=== PATIENT | female | born 1935 | race Caucasian/White ===

== ENCOUNTER → 2016-05-07 | Outpatient (CLI) | payer BC ==
--- NOTE | 2016-05-07 13:58 | MAMMOGRAPHY REPORT ---
BILATERAL DIGITAL SCREENING MAMMOGRAM WITH CAD: 05/07/2016 TECHNIQUE: Current study was also evaluated with a Computer Aided Detection (CAD) system. Bilatera l CC and MLO views were obtained. COMPARISON: Comparison is made to exams dated: 04/25/2015 mammogram, 04/23/2013 mammogram, 04/24/2014 mammogram - [facility], 02/22/2012 mammogram, 02/15/2011 mammogram, and 02/10/2010 mammogram. BREAST COMPOSITION: There are scattered areas of fibroglandular density in both breasts. FINDINGS: No suspicious masses, calcifications, or areas of architectural distortion are noted in e ither breast. There has been no significant interval change compared to prior exams. Bilateral dago gn vascular calcifications are again noted. IMPRESSION: ACR BI-RADS CATEGORY 2: BENIGN There is no mammographic evidence of malignancy. A 1 year screening mammogram is recommended. The p atient will receive written notification of the results. Approximately 10% of breast cancers are not detected with mammography. A negative mammographic repor t should not delay biopsy if a clinically suggestive mass is present. Rain Amos M.D. /:05/07/2016 13:44:29 Reversal Print Inspector: Martine GAN(Esme)(M), [facility] letter sent: Normal 1/2 BI-RADS Code: ACR BI-RADS Category 2: Benign
== END | disposition home or self-care (01) ==
LOC: C.MAMM 10:51
PROVIDERS: ATTEND Internal Medicine
DX: Z12.31 Encounter for screening mammogram for malignant neoplasm of breast (principal)

== ENCOUNTER → 2016-05-28 | Outpatient (CLI) | payer BC ==
--- NOTE | 2016-05-28 08:16 | DIAGNOSTIC IMAGING REPORT ---
ULTRASOUND OF THE PELVIS CLINICAL HISTORY: Postmenopausal bleeding. COMPARISON STUDY: No priors. TECHNIQUE: Real-time, grayscale, and color flow sonography of the pelvis is performed both transabdominally and endovaginally. Images are reviewed in the transverse and longitudinal planes. FINDINGS: Uterus: The uterus is atrophic and heterogeneous in echotexture, measuring 6.7 x 2.2 x 2.2 cm. Endometrium: The endometrium is heterogeneous and thickened for age, measuring up to 0.8 cm. Ovaries: The right ovary was not visualized. The left ovary appears atrophic, and measures 1.5 x 0.7 x 1.0 cm. Normal Doppler waveforms are shown within the left ovary. Pelvis: There is no free fluid in the cul-de-sac. No concerning adnexal lesion is seen. IMPRESSION: 1. The endometrial stripe is heterogeneous and thickened for age measuring up to 8 mm. Although this may simply represent endometrial hyperplasia, follow-up in gynecology with endometrial biopsy is recommended to exclude neoplasm. 2. The left ovary is normal as visualized. The right ovary was not seen. Electronically signed by: Joshua Reyna M.D. 05/28/2016 8:15 AM Dictated Date/Time: 05/28/2016 8:13 AM
== END | disposition home or self-care (01) ==
LOC: C.ULTRBC 07:41
PROVIDERS: ATTEND Nurse Practitioner Family
DX: N95.0 Postmenopausal bleeding (principal)

== ENCOUNTER → 2016-06-14 | Outpatient (CLI) | payer BC | END | disposition home or self-care (01) | LOC: C.PATHSPEC 13:51 | PROVIDERS: ATTEND Obstetrics & Gynecology | DX: N95.0 Postmenopausal bleeding (principal) ==

== ENCOUNTER → 2017-05-09 | Outpatient (CLI) | payer BC ==
--- NOTE | 2017-05-10 07:57 | MAMMOGRAPHY REPORT ---
BILATERAL DIGITAL SCREENING MAMMOGRAM TOMOSYNTHESIS WITH CAD: 05/09/2017 CLINICAL HISTORY: Routine screening. Patient has no complaints. TECHNIQUE: Breast tomosynthesis in addition to standard 2D mammography was performed. Current study was also evaluated with a Computer Aided Detection (CAD) system. COMPARISON: Comparison is made to exams dated: 05/07/2016 mammogram, 04/25/2015 mammogram, 04/24/2014 m ammogram, 04/23/2013 mammogram - [facility], 02/22/2012 mammogram, and 02/15/2011 [facility] mogram. BREAST COMPOSITION: There are scattered areas of fibroglandular density in both breasts. FINDINGS: There are moderate to marked vascular calcifications in the breasts. No suspicious mass, a rchitectural distortion or cluster of microcalcifications is seen. IMPRESSION: ACR BI-RADS CATEGORY 1: NEGATIVE There is no mammographic evidence of malignancy. A 1 year screening mammogram is recommended. The pa tient will receive written notification of the results. Approximately 10% of breast cancers are not detected with mammography. A negative mammographic report should not delay biopsy if a clinically suggestive mass is present. Elena Nixon M.D. ay/:05/09/2017 18:04:58 Corn Grower: Joselin GAN(Esme)(M), [facility] letter sent: Normal 1/2 BI-RADS Code: ACR BI-RADS Category 1: Negative
== END | disposition home or self-care (01) ==
LOC: C.MAMM 11:03
PROVIDERS: ATTEND Internal Medicine
DX: Z12.31 Encounter for screening mammogram for malignant neoplasm of breast (principal)

== ENCOUNTER 2023-08-18 14:53 | Observation (INO) ==
[2023-08-18 15:42] LABS: Basophils # (auto) 0.03 K/uL (0.00-0.20); Basophils % (auto) 0.3 %; Eosinophils # (auto) 0.13 K/uL (0.00-0.50); Eosinophils % (auto) 1.5 %; Hematocrit (blood only) 40.3 % (37.0-47.0); Hemoglobin 12.6 g/dl (12.0-16.0); Immature Granulocytes # (auto) 0.03 K/uL (0.01-0.20); Immature Granulocytes % (auto) 0.3 %; Lymphocytes # (auto) 1.24 K/uL (1.20-3.40); Lymphocytes % (auto) 13.9 %; Mean Corpuscular Hgb Conc 31.3 g/dL (32.0-36.0); Mean Corpuscular Volume 99.3 fL (80.0-100.0); Monocytes # (auto) 0.82 K/uL (0.11-0.59); Monocytes % (auto) 9.2 %; Neutrophils # (auto) 6.68 K/uL (1.40-6.50); Neutrophils % (auto) 74.8 %; Platelet Count 309 K/uL (130-400); RDW Coefficient of Variation 12.3 % (11.5-14.5); RDW Standard Deviation 45.2 fL (36.4-46.3); Red Blood Count 4.06 M/uL (4.20-5.40); White Blood Count 8.93 K/ul (4.8-10.8)
[2023-08-18 16:07] LABS: Albumin Globulin Ratio 1.1 (0.9-2); Bilirubin,Total 0.5 mg/dl (0.2-1.0); Calcium 9.7 mg/dl (8.6-10.3); Creatinine Clr Calc Pharmacy 62.1 ml/min; Est GFR (African American) 100.2 ml/min; Est GFR (Non-African American) 86.4 ml/min; Globulin 3.6 gm/dl (2.5-4.0); Magnesium 2.2 mg/dl (1.7-2.4); Partial Thromboplastin Time 28 Seconds (21-31); Potassium 4.4 mmol/L (3.5-5.1); Prothrombin Time 10.6 Seconds (9.0-12.0); Total Protein 7.6 gm/dl (6.0-8.3)
--- NOTE | 2023-08-18 16:09 | XRay Report ---
SINGLE VIEW CHEST CLINICAL HISTORY: Sepsis. FINDINGS: A PA chest radiograph is compared to study dated 06/07/2018. The heart is top normal for pro jection noting atherosclerotic calcification of the thoracic aorta. There is bibasilar scarring/atele ctasis. No airspace consolidation or large pleural effusion is identified. No pneumothorax is seen. T he skeletal structures are osteopenic. The bony thorax is grossly intact. IMPRESSION: No active disease in the chest. ACT 112: Negative or not required by law. Electronically signed by: Joshua Reyna M.D. 08/18/2023 4:08 PM
[2023-08-18 16:13] LABS: Troponin I High Sensitivity 12.3 pg/ml (0-14)
[2023-08-18] MEDS: AMPICILLIN/SULBACTAM SOD 3,000 MG in SODIUM CHLOR 0.9% MINI-B 100 ML IV STA (16:41)
--- NOTE | 2023-08-18 16:42 | XRay Report ---
RIGHT FOREARM 2 VIEWS CLINICAL HISTORY: Right arm swelling. FINDINGS: AP and lateral views of the right forearm are obtained. No prior studies are available for comparison at the time of dictation. The skeletal structures are osteopenic. There is no radiographic evidence of right forearm fracture. The elbow and wrist joints are grossly maintained. Diffuse soft tissue edema is seen throughout the right forearm, wrist, and hand. No radiodense foreign body or sof t tissue gas is identified. IMPRESSION: Soft tissue edema with no acute bony abnormality identified. Electronically signed by: Joshua Reyna M.D. 08/18/2023 4:41 PM
--- NOTE | 2023-08-18 16:47 | Emergency Department Note ---
History of Present Illness General Chief complaint: Hand Injury/Pain Stated complaint: CELLULITIS OF RT HAND Time Seen by Provider: 08/18/23 15:21 History of Present Illness NAME: KURT TODD AGE: 88 SEX: F : 1935 ARRIVES VIA: Walk-In INFORMANT: Patient ED PROVIDER(S): LONA Brower, Rafael Galan MD The patient is a pleasant well-appearing 88-year-old female who arrives to the emergency department with her aide for evaluation of pain in the right hand. She reports she was scratched by a cat a few days ago and was seen by her provider. She states she has been Augmentin since then, which has not helped with the infection. She also received IM Rocephin. She has significant edema with erythema extending from the MCP joints of the right hand to the mid forearm. She reports pain with flexion and extension of the wrist, and limited range of motion due to edema. She denies fever, or loss of roller skates assembler strength. She is alert and oriented at baseline. Home Medications Medication Instructions Recorded Confirmed Type aspirin 81 mg tablet,delayed 81 mg PO QAM 11/27/20 08/18/23 History release atorvastatin 40 mg tablet 40 mg PO QPM 11/27/20 08/18/23 History Saccharomyces boulardii 250 mg 250 mg PO DAILY 08/18/23 08/18/23 History capsule (Florastor) acetaminophen 500 mg tablet 1,000 mg PO TID 08/18/23 08/18/23 History (Tylenol Extra Strength) amoxicillin 875 mg-potassium 1 tab PO BID 08/18/23 08/18/23 History clavulanate 125 mg tablet cholecalciferol (vitamin D3) 50 50 mcg PO QAM 08/18/23 08/18/23 History mcg (2,000 unit) capsule (Vitamin D3) cyanocobalamin (vitamin B-12) 500 500 mcg PO DAILY 08/18/23 08/18/23 History mcg tablet (Vitamin B-12) diclofenac sodium 1 % topical gel 1 ea topical TID PRN right knee 08/18/23 08/18/23 History pain diphenhydramine-zinc acetate 1 1 applic topical Q6 PRN 08/18/23 08/18/23 History %-0.1 % topical cream (Benadryl itching/rash Itch Stopping) eplerenone 25 mg tablet 12.5 mg PO QAM 08/18/23 08/18/23 History levothyroxine 75 mcg tablet 75 mcg PO DAILYBB 08/18/23 08/18/23 History oxycodone 5 mg tablet 5 mg PO QID PRN Pain 08/18/23 08/18/23 History vit C 250 mg-vit E 90 mg-zinc 40 2 tab PO QPM 08/18/23 08/18/23 History mg-copper 1 [id number] capsule (PreserVision AREDS-2) Allergies Allergy/AdvReac Type Severity Reaction Status Date / Time No Known Drug Allergies Allergy Unknown Verified 08/18/23 17:42 Past Med/Surg History Problem List (Updated 08/18/23 @ 19:22 by LONA Willis) Cellulitis (Acute) Cat scratch (Acute) Patella fracture 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, multifocal, multiple vascular territories Small vessel disease, cerebrovascular Memory changes Thickened endometrium Medical History Thyroid disease hypothyroid Surgical History History of D&C History of appendectomy History of oral surgery Tooth extraction Family History Grandmother Breast cancer Father Prostate cancer Mother Osteoporosis Denies family history of Pancreatic cancer Ovarian cancer Colorectal cancer Uterine cancer Social History Smoking Status: Never smoker Do You Dip or Chew Tobacco: No; Hx Alcohol Use: Yes Preferred Language: Czech marital status: / Current Living Situation: Alone Current Living Situation Comment: [facility] current occupational status: retired current occupation: prior high school math tutor. How many Children do You have: 6 Feels Safe at Home: Yes Diet: regular Diet Comment: regular diet Physical Activity Frequency: 3-4 Times per Week Physical Exam Vital Signs Vital Signs - 24 hr 08/18/23 15:16 08/18/23 16:44 08/18/23 16:44 Temperature 36.8 C Temperature Source Oral Pulse Rate 86 Pulse Rate [Finger] 75 Respiratory Rate 16 15 Respiratory Effort / Characteristics Non-Labored Spontaneous Respiratory Depth Normal Blood Pressure 134/76 Blood Pressure [Right Arm] 138/77 Blood Pressure Mean 95 Blood Pressure Mean [Right Arm] 97 Pulse Oximetry 95 99 99 Oxygen Delivery Method Room Air Sepsis Recent Fever Within 48 Hours No Sepsis New/Unexplained Change in Mental Status No Sepsis Action Taken by Nursing No Action Required 08/18/23 18:40 Temperature Temperature Source Pulse Rate Pulse Rate [Finger] Respiratory Rate Respiratory Effort / Characteristics Respiratory Depth Blood Pressure Blood Pressure [Right Arm] 135/70 Blood Pressure Mean Blood Pressure Mean [Right Arm] 91 Pulse Oximetry Oxygen Delivery Method Sepsis Recent Fever Within 48 Hours Sepsis New/Unexplained Change in Mental Status Sepsis Action Taken by Nursing VITALS: Vitals are noted on the nurse's note and reviewed by myself. Vital signs stable. GENERAL: 88-year-old female, in no acute distress, nondiaphoretic, well- developed well-nourished. SKIN: The skin was without rashes, erythema, edema, or bruising. HEAD: Normocephalic atraumatic. HEART: Regular rate and rhythm without murmurs gallops or rubs. LUNGS: Clear to auscultation bilaterally without wheezes, rales or rhonchi. No retractions or accessory muscle use. MUSCULOSKELETAL: No muscle atrophy, erythema, and edema present from the MCP joints of the right hand, dorsum, extending to the mid forearm. Limited ROM to due edema, strength 5/5, capillary refill <3. NEURO: Patient was alert and oriented to person place and time. No focal neurological deficits. Course Administered Medications Azithromycin 500 mg/ Dextrose 255 mls @ 127.5 mls/hr IV NOW STA Stop: 08/18/23 19:48 Last Admin: 08/18/23 18:07 Dose: 127.5 mls/hr Documented By: SWETA Discontinued Medications Ampicillin Sodium/Sulbactam Sodium 3,000 mg/ Sodium Chloride 100 mls @ 200 mls/hr IV NOW STA Stop: 08/18/23 16:35 Last Infusion: 08/18/23 17:39 Dose: Infused Documented By: Admin: 08/18/23 16:41 Dose: 200 mls/hr Documented By: SWETA Medical Decision Making Differential Diagnosis Cellulitis, abscess, MRSA infection, DVT, necrotizing fasciitis, dermatitis, drug eruption, allergic reaction, as well as other pathologies. Medical Records Attestation: I reviewed the patient's medical records. Home Medications Current Medication List: was personally reviewed by me Laboratory Data Attestation: I reviewed the patient's lab results. No leukocytosis, stable hemoglobin and, no electrolyte abnormalities, troponin 12.3, lactate [], procalcitonin 0.02. 08/18/23 15:20 08/18/23 15:20 Lab Results 08/18/23 08/18/23 Range/Units 15:20 16:35 WBC 8.93 (4.8-10.8) K/ul RBC 4.06 L (4.20-5.40) M/uL Hgb 12.6 (12.0-16.0) g/dl Hct 40.3 (37.0-47.0) % MCV 99.3 (80.0-100.0) fL MCH 31.0 (25.0-34.0) pg MCHC 31.3 L (32.0-36.0) g/dL RDW Std Deviation 45.2 (36.4-46.3) fL RDW Coeff of Neri 12.3 (11.5-14.5) % Plt Count 309 (130-400) K/uL MPV 10.0 (9.4-12.4) fL Immature Gran % (Auto) 0.3 % Neut % (Auto) 74.8 % Lymph % (Auto) 13.9 % [place] % (Auto) 9.2 % Eos % (Auto) 1.5 % Baso % (Auto) 0.3 % Neut # (Auto) 6.68 H (1.40-6.50) K/uL Lymph # (Auto) 1.24 (1.20-3.40) K/uL Churchill # (Auto) 0.82 H (0.11-0.59) K/uL Eos # (Auto) 0.13 (0.00-0.50) K/uL Baso # (Auto) 0.03 (0.00-0.20) K/uL Immature Gran # (Auto) 0.03 (0.01-0.20) K/uL ESR 76 H (0-30) mm/hr PT 10.6 (9.0-12.0) Seconds INR 1.0 (0.9-1.1) APTT 28 (21-31) Seconds PTT Ratio 1.0 Sodium 136 (136-145) mmol/L Potassium 4.4 (3.5-5.1) mmol/L Chloride 102 (98-107) mmol/L Carbon Dioxide 28 (21-32) mmol/L Anion Gap 6 (3-11) BUN 16 (6-23) mg/dl Creatinine 0.50 L (0.6-1.2) mg/dl Est Cr Clr Drug Dosing 62.1 ml/min Est GFR ( Amer) 100.2 ml/min Est GFR (Non-Af Amer) 86.4 ml/min BUN/Creatinine Ratio 32.0 H (10-20) Glucose 102 H (70-99(Fasting)) mg/dl Lactate 1.3 (0.4-2.0) mmol/L Calcium 9.7 (8.6-10.3) mg/dl Magnesium 2.2 (1.7-2.4) mg/dl Total Bilirubin 0.5 (0.2-1.0) mg/dl AST 19 (13-39) U/L ALT 16 (7-52) U/L Alkaline Phosphatase 78 (34-104) U/L Troponin I High Sens 12.3 (0-14) pg/ml C-Reactive Protein 12.48 H (0-0.5) mg/dl Total Protein 7.6 (6.0-8.3) gm/dl Albumin 4.0 (3.4-5.0) gm/dl Globulin 3.6 (2.5-4.0) gm/dl Albumin/Globulin Ratio 1.1 (0.9-2) Procalcitonin < 0.02 (0-0.5) ng/ml Urine Color Yellow Urine Appearance Clear (Clear) Urine pH 5.5 (4.5-7.5) Ur Specific [place] 1.023 (1.000-1.030) Urine Protein 1+ H (Negative) Urine Glucose (UA) Negative (Negative) Urine Ketones Trace H (Negative) Urine Blood Negative (Negative) Urine Nitrite Negative (Negative) Urine Bilirubin Negative (Negative) Urine Urobilinogen Negative (Negative) Ur Leukocyte Esterase Trace H (Negative) Urine WBC (Auto) 6-10 H (0-5) /hpf Urine RBC (Auto) 0-2 (0-2) /hpf U Hyaline Cast (Auto) 0-2 (0-2) /lpf U Epithel Cells (Auto) 0-2 (0-2) /hpf Urine Bacteria (Auto) None Seen (None Seen) Imaging Data Radiologist's Impression: Chest X-Ray 08/18/23 15:18 SINGLE VIEW CHEST CLINICAL HISTORY: Sepsis. FINDINGS: A PA chest radiograph is compared to study dated 06/07/2018. The heart is top normal for projection noting atherosclerotic calcification of the thoracic aorta. There is bibasilar scarring/atelectasis. No airspace consolidation or large pleural effusion is identified. No pneumothorax is seen. The skeletal structures are osteopenic. The bony thorax is grossly intact. IMPRESSION: No active disease in the chest. ACT 112: Negative or not required by law. Electronically signed by: Joshua Reyna M.D. 08/18/2023 4:08 PM Hand X-Ray 08/18/23 16:05 XR hand RT min 3V routine HISTORY: 88 years-old Female edema acute pain and swelling of the right hand COMPARISON: Forearm radiograph same day TECHNIQUE: 3 views of the right hand FINDINGS: Mild diffuse soft tissue swelling. The visualized appearance of the bones. Chondrocalcinosis. Moderate multifocal osteoarthritis. No acute fracture, dislocation or osseous erosion. IMPRESSION: Soft tissue swelling without acute osseous abnormality. ACT 112: Negative or not required by law. The above report was generated using voice recognition software. It may contain grammatical, syntax or spelling errors. Electronically signed by: Iain Poole M.D. 08/18/2023 4:57 PM Forearm X-Ray 08/18/23 16:06 RIGHT FOREARM 2 VIEWS CLINICAL HISTORY: Right arm swelling. FINDINGS: AP and lateral views of the right forearm are obtained. No prior studies are available for comparison at the time of dictation. The skeletal structures are osteopenic. There is no radiographic evidence of right forearm fracture. The elbow and wrist joints are grossly maintained. Diffuse soft tissue edema is seen throughout the right forearm, wrist, and hand. No radiodense foreign body or soft tissue gas is identified. IMPRESSION: Soft tissue edema with no acute bony abnormality identified. Electronically signed by: Joshua Reyna M.D. 08/18/2023 4:41 PM MDM Narrative The patient is a pleasant 88-year-old female who arrives to the emergency department with her aide for the above-stated complaint. Upon examination it appears the patient has failed outpatient oral antibiotic treatment. Her infection is from a cat scratch which is progressed despite Augmentin and IM Rocephin. She denies fevers, however erythema and edema has worsened over the last few days. A saline lock was established, CBC, CMP, lactate, troponin, and procalcitonin were obtained which showed no leukocytosis, stable hemoglobin and hematocrit, no electrolyte abnormalities, troponin negative, procalcitonin 0.02, lactate negative. X-ray imaging of the hand and forearm was obtained which showed no acute fracture or bony abnormality per my initial interpretation. The patient was provided 3 g of IV Unasyn for IV antibiotic treatment, as well as IV azithromycin. Case management was notified regarding the patient's need for admission who contacted the [facility] hospitalist group. Dr. Pastor was notified of the patient, and agreed to accept her for admission for IV antibiotics. Please refer to Dr. Pastor's documentation for further patient care. The patient's case was discussed with Dr. Galan, who agreed with my evaluation and treatment plan. Impression & Plan Cat scratch, Cellulitis Discharge Plan Visit Data Chief Complaint: Hand Injury/Pain Stated Complaint: CELLULITIS OF RT HAND ED Provider: Rafael Galan ED Midlevel Provider: Jolanta Monaco Discharge Problem: Cat scratch, Cellulitis Forms Stand Alone Forms: [facility] Prescriptions Prescriptions: No Action aspirin 81 mg tablet,delayed release (DR/EC) 81 mg PO QAM atorvastatin 40 mg tablet 40 mg PO QPM levothyroxine 75 mcg Tablet 75 mcg PO DAILYBB cholecalciferol (vitamin D3) [Vitamin D3] 50 mcg (2,000 unit) Capsule 50 mcg PO QAM cyanocobalamin (vitamin B-12) [Vitamin B-12] 500 mcg Tablet 500 mcg PO DAILY PreserVision AREDS-2 250-90-40-1 mg Capsule 2 tab PO QPM acetaminophen [Tylenol Extra Strength] 500 mg Tablet 1,000 mg PO TID oxycodone 5 mg Tablet 5 mg PO QID PRN (Reason: Pain) eplerenone 25 mg Tablet 12.5 mg PO QAM Rx Instructions: 1/2 tablet dose diclofenac sodium 1 % Gel 1 ea TOPICAL TID PRN (Reason: right knee pain) Saccharomyces boulardii [Florastor] 250 mg Capsule 250 mg PO DAILY Rx Instructions: take for 2 weeks..start 08/16/23 end date 08/30/23 amoxicillin-pot clavulanate [Augmentin] 875-125 mg Tablet 1 tab PO BID Rx Instructions: take for 14 administrations starting 08/15/23 and ending 08/22/23 Benadryl Itch Stopping 1-0.1 % Cream 1 applic TOPICAL Q6 PRN (Reason: itching/rash) Referrals Referrals: Hoang Palma MD [Primary Care Provider] - Discharge Problem: Cellulitis Qualifiers: Site of cellulitis: extremity Site of cellulitis of extremity: upper extremity Laterality: right Qualified Code(s): L03.113 - Cellulitis of right upper limb
--- NOTE | 2023-08-18 16:58 | XRay Report ---
XR hand RT min 3V routine HISTORY: 88 years-old Female edema acute pain and swelling of the right hand COMPARISON: Forearm radiograph same day TECHNIQUE: 3 views of the right hand FINDINGS: Mild diffuse soft tissue swelling. The visualized appearance of the bones. Chondrocalcinosis. Moderat e multifocal osteoarthritis. No acute fracture, dislocation or osseous erosion. IMPRESSION: Soft tissue swelling without acute osseous abnormality. ACT 112: Negative or not required by law. The above report was generated using voice recognition software. It may contain grammatical, syntax o r spelling errors. Electronically signed by: Iain Poole M.D. 08/18/2023 4:57 PM
[2023-08-18 17:05] LABS: Appearance Urine Clear (Clear); Bacteria Urine Automated None Seen (None Seen); Bilirubin Urine Negative (Negative); Blood Urine Negative (Negative); Cast Urine Automated 0-2 /lpf (0-2); Color Urine Yellow; Epithelial Cell Urine Auto 0-2 /hpf (0-2); Glucose Urine UA Negative (Negative); Ketones Urine Trace (Negative); Leukocyte Esterase Urine Trace (Negative); Nitrite Urine Negative (Negative); Protein Urine 1+ (Negative); RBC Urine Automated 0-2 /hpf (0-2); Specific Gravity Urine 1.023 (1.000-1.030); Urobilinogen Urine Negative (Negative); pH Urine 5.5 (4.5-7.5)
--- NOTE | 2023-08-18 17:31 | History & Physical Report ---
Date of Service August 18, 2023 Assessment & Plan (1) Cat scratch: Plan: [facility] resident; cat scratch on her right hand at some point last week from her home Nursing staff first noticed it on Tuesday, and it has persistently gotten worse Failure of outpatient treatment with Augmentin and IM Rocephin x 1 dose Leukocytosis; afebrile Procalcitonin WNL Right hand/forearm x-rays with soft tissue swelling but no acute bony abnormalities CRP and ESR ordered, pending Azithromycin 500 mg IV q24h; QTc pending Rocephin 2000 mg IV q24h Flagyl 500 mg IV q8h Follow blood cx A.m. CBC, BMP, CRP (2) Chronic arterial ischemic stroke, multifocal, multiple vascular territories: (3) Small vessel disease, cerebrovascular: (4) Memory changes: Plan Disposition: Obs - Admit to [facility] DNR/DNI Regular diet VTE PPx: TEDs History of Present Illness Chief Complaint: Right hand injury/pain, cat scratch Primary Care Provider: Hoang Palma MD Rahel is a pleasant 88-year-old female with PMH of cerebrovascular small vessel disease, valvular heart disease, arterial ischemic stroke, and thickened endometrium. She presented from [facility] on 08/17 for right hand cellulitis secondary to a cat scratch. Patient is unsure when the cat scratched her, but it was her house cat (Magui). [facility] nursing present in the room implies additional history; they report that swelling and erythema began to get worse on Tuesday/Tuesday of this past week, and she has been taking Augmentin for it without improvement. She also received a dose of IM Rocephin on 08/15. The patient has no complaints at this time, but does note that his swollen and erythematous. She denies loss of function in her right hand, difficulty with gripping things, itching, or right hand, wrist, or forearm pain. She denies fevers over the past week. She denies prior injuries to the hand for broken bones. She denies any recent falls or fainting. She denies smoking, alcohol use, or tobacco use. Patient's vitals are stable at time of admission. ED course: Unasyn 3000 mg IV ROS: Patient endorses mild headache, and swelling and erythema on the dorsal aspect of the right hand/wrist/forearm. Patient denies right hand/wrist/forearm pain, itching, fevers, chills, nightsweats, dizziness, lightheadedness, chest pain, SOB, cough, abdominal pain, N/V/D, or numbness or tingling in the right arm. Allergies Allergy/AdvReac Type Severity Reaction Status Date / Time No Known Drug Allergies Allergy Unknown Verified 08/18/23 17:42 Home Medications Medication Instructions Recorded Confirmed Type aspirin 81 mg tablet,delayed 81 mg PO QAM 11/27/20 08/18/23 History release atorvastatin 40 mg tablet 40 mg PO QPM 11/27/20 08/18/23 History Saccharomyces boulardii 250 mg 250 mg PO DAILY 08/18/23 08/18/23 History capsule (Florastor) acetaminophen 500 mg tablet 1,000 mg PO TID 08/18/23 08/18/23 History (Tylenol Extra Strength) amoxicillin 875 mg-potassium 1 tab PO BID 08/18/23 08/18/23 History clavulanate 125 mg tablet cholecalciferol (vitamin D3) 50 50 mcg PO QAM 08/18/23 08/18/23 History mcg (2,000 unit) capsule (Vitamin D3) cyanocobalamin (vitamin B-12) 500 500 mcg PO DAILY 08/18/23 08/18/23 History mcg tablet (Vitamin B-12) diclofenac sodium 1 % topical gel 1 ea topical TID PRN right knee 08/18/23 08/18/23 History pain diphenhydramine-zinc acetate 1 1 applic topical Q6 PRN 08/18/23 08/18/23 History %-0.1 % topical cream (Benadryl itching/rash Itch Stopping) eplerenone 25 mg tablet 12.5 mg PO QAM 08/18/23 08/18/23 History levothyroxine 75 mcg tablet 75 mcg PO DAILYBB 08/18/23 08/18/23 History oxycodone 5 mg tablet 5 mg PO QID PRN Pain 08/18/23 08/18/23 History vit C 250 mg-vit E 90 mg-zinc 40 2 tab PO QPM 08/18/23 08/18/23 History mg-copper 1 [id number] capsule (PreserVision AREDS-2) Past Med/Surg History Problem List (Updated 08/18/23 @ 19:22 by LONA Willis) Cellulitis (Acute) Cat scratch (Acute) Patella fracture 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, multifocal, multiple vascular territories Small vessel disease, cerebrovascular Memory changes Thickened endometrium Medical History Thyroid disease hypothyroid Surgical History History of D&C History of appendectomy History of oral surgery Tooth extraction Family History Grandmother Breast cancer Father Prostate cancer Mother Osteoporosis Denies family history of Pancreatic cancer Ovarian cancer Colorectal cancer Uterine cancer Social History Smoking Status: Never smoker Do You Dip or Chew Tobacco: No; Hx Alcohol Use: Yes Preferred Language: Lao marital status: / Current Living Situation: Alone Current Living Situation Comment: [facility] current occupational status: retired current occupation: prior grade school teacher. How many Children do You have: 6 Feels Safe at Home: Yes Diet: regular Diet Comment: regular diet Physical Activity Frequency: 3-4 Times per Week Review of Systems 2 Review of Systems: See HPI above Physical Exam 2 Physical Exam: General: no acute distress; pleasant affect; non-toxic appearing; well- nourished; cooperative HEENT: normocephalic, atraumatic; no scleral icterus; PERRLA; moist mucus membrane; vision intact; hard of hearing Neck: supple; trachea midline Skin: warm, dry without signs of tenting; no cyanosis; no rashes, bruising, lesions, or erythema noted RUE: Dorsal aspect of right upper extremity is erythematous, swollen, and warm to touch (see photos below) CV: chest wall NTP; RRR; S1/S2 normal; no murmurs/rubs/gallops; pulses intact and symmetric at radial, DP, and PT Lungs: no acute respiratory distress; symmetrical chest wall expansion; clear breath sounds across all lung gerard w/o adventitious sounds; no wheezing ABD: Soft, NTP; BS present; no rebound/guarding; no distention MSK: no tics or fasciculations; no edema noted in the LEs b/l, nonerythematous; 5/5 plaster helper strength bilaterally Neuro: A&Ox3; patient exhibits mild confusion regarding the events of the cat scratch; normal mood and affect; fluent speech; no focal deficits; sensation grossly intact in the UE/LEs b/l Results & Data Results & Data Vital Signs (Past 12 Hours) Vital Signs Temp Pulse Pulse Resp BP BP Pulse Ox 08/18/23 16:44 99 08/18/23 16:44 75 15 138/77 99 08/18/23 15:16 36.8 C 86 16 134/76 95 O2 Del Method 08/18/23 16:44 08/18/23 16:44 08/18/23 15:16 Room Air Laboratory Results Abnormal lab results 08/18/23 08/18/23 Range/Units 15:20 16:35 RBC 4.06 L (4.20-5.40) M/uL MCHC 31.3 L (32.0-36.0) g/dL Neut # (Auto) 6.68 H (1.40-6.50) K/uL Wagoner # (Auto) 0.82 H (0.11-0.59) K/uL Creatinine 0.50 L (0.6-1.2) mg/dl BUN/Creatinine Ratio 32.0 H (10-20) Glucose 102 H (70-99(Fasting)) mg/dl Urine Protein 1+ H (Negative) Urine Ketones Trace H (Negative) Ur Leukocyte Esterase Trace H (Negative) Urine WBC (Auto) 6-10 H (0-5) /hpf Diagnostic Findings Chest X-Ray 08/18/23 15:18 SINGLE VIEW CHEST CLINICAL HISTORY: Sepsis. FINDINGS: A PA chest radiograph is compared to study dated 06/07/2018. The heart is top normal for projection noting atherosclerotic calcification of the thoracic aorta. There is bibasilar scarring/atelectasis. No airspace consolidation or large pleural effusion is identified. No pneumothorax is seen. The skeletal structures are osteopenic. The bony thorax is grossly intact. IMPRESSION: No active disease in the chest. ACT 112: Negative or not required by law. Electronically signed by: Joshua Reyna M.D. 08/18/2023 4:08 PM Hand X-Ray 08/18/23 16:05 XR hand RT min 3V routine HISTORY: 88 years-old Female edema acute pain and swelling of the right hand COMPARISON: Forearm radiograph same day TECHNIQUE: 3 views of the right hand FINDINGS: Mild diffuse soft tissue swelling. The visualized appearance of the bones. Chondrocalcinosis. Moderate multifocal osteoarthritis. No acute fracture, dislocation or osseous erosion. IMPRESSION: Soft tissue swelling without acute osseous abnormality. ACT 112: Negative or not required by law. The above report was generated using voice recognition software. It may contain grammatical, syntax or spelling errors. Electronically signed by: aIin Poole M.D. 08/18/2023 4:57 PM Forearm X-Ray 08/18/23 16:06 RIGHT FOREARM 2 VIEWS CLINICAL HISTORY: Right arm swelling. FINDINGS: AP and lateral views of the right forearm are obtained. No prior studies are available for comparison at the time of dictation. The skeletal structures are osteopenic. There is no radiographic evidence of right forearm fracture. The elbow and wrist joints are grossly maintained. Diffuse soft tissue edema is seen throughout the right forearm, wrist, and hand. No radiodense foreign body or soft tissue gas is identified. IMPRESSION: Soft tissue edema with no acute bony abnormality identified. Electronically signed by: Joshua Reyna M.D. 08/18/2023 4:41 PM ECG Additional Comments: ECG ordered to assess QTc, pending Code Status & VTE Plan Code Status DNR/DNI (confirmed via POLST form signed on 11/23/2021) Supervising Physician Co-Signing Physician Notes Patient seen and examined, chart reviewed, case discussed with Javier Salguero PA-C and I agree with the assessment and plan as above except as otherwise noted Labs and images reviewed Patient presents with worsening cellulitis at site of a cat scratch in her right arm. Expanding demarcated erythema of the right hand and distal arm, marked with surgical pen and photos and H&P. Chest x-ray with soft tissue edema no bony abnormalities. Continued to worsen with progressive erythemic borders despite outpatient treatment with Augmentin. Seen at bedside, nontoxic- appearing. Will treat with Rocephin with Flagyl, and add azithromycin for additional Pasteurella coverage. No leukocytosis. Nontoxic-appearing. Sub Master strength and wrist movement is without induction of radiating pain, low suspicion for tenosynovitis. Agree with assessment and management above. PG Care Time/CCT Total # of Minutes Spent Total Time Spent with Patient: Total time spent is greater than 50% in coordination of care (as documented) at patient's floor/unit and/or counseling patient: C[place] [address] INT INP/OBS CARE 1/40MIN Patient Type Established History Detailed Exam Detailed Medical Decision Making Low Complexity Diagnoses Cat scratch W55.03XA Chronic arterial ischemic stroke, multifocal, multiple vascular territories I69.30 Small vessel disease, cerebrovascular I67.9 Memory changes R41.3
[2023-08-18] MEDS: AZITHROMYCIN 500 MG in DEXTROSE 5% 250 ML IV STA (18:07)
--- NOTE | 2023-08-18 18:46 | Emergency Department Note ---
ED Visit Note The patient was seen and examined with mayra. I agree with the history, physical and findings. Please see the note for disposition and details. .
[2023-08-18 18:57] LABS: C Reactive Protein 12.48 mg/dl (0-0.5)
[2023-08-18] MEDS ORDERED: oxyCODONE HCL IR 5 MG TAB (IMMEDIATE RELEASE) PO PRN (19:58)
[2023-08-18] MEDS ORDERED: DICLOFENAC SOD 1% GEL 100 GM TUBE EXT PRN (19:58)
[2023-08-18] MEDS ORDERED: MELATONIN 3 MG TAB PO PRN (19:58)
[2023-08-18] MEDS: cefTRIAXone SODIUM 2,000 MG/50 ML BAG IV STA (20:41)
[2023-08-18] MEDS: metroNIDAZOLE 500 MG/100 ML BAG IV SCH (21:35)
[2023-08-18] MEDS: ACETAMINOPHEN 500 MG TAB PO SCH (21:36)
[2023-08-18] MEDS: ATORVASTATIN 40 MG TAB PO SCH (21:36)
[2023-08-19] MEDS: LEVOTHYROXINE SODIUM 75 MCG TABLET PO SCH (05:44)
[2023-08-19 07:47] LABS: Basophils # (auto) 0.05 K/uL (0.00-0.20); Basophils % (auto) 0.6 %; Eosinophils % (auto) 1.1 %; Hematocrit (blood only) 39.8 % (37.0-47.0); Hemoglobin 12.8 g/dl (12.0-16.0); Immature Granulocytes # (auto) 0.03 K/uL (0.01-0.20); Immature Granulocytes % (auto) 0.3 %; Lymphocytes # (auto) 0.97 K/uL (1.20-3.40); Mean Corpuscular Hemoglobin 31.2 pg (25.0-34.0); Mean Corpuscular Hgb Conc 32.2 g/dL (32.0-36.0); Mean Corpuscular Volume 97.1 fL (80.0-100.0); Mean Platelet Volume 9.9 fL (9.4-12.4); Monocytes # (auto) 0.81 K/uL (0.11-0.59); Monocytes % (auto) 9.2 %; Neutrophils # (auto) 6.88 K/uL (1.40-6.50); Neutrophils % (auto) 77.8 %; Platelet Count 316 K/uL (130-400); RDW Coefficient of Variation 12.1 % (11.5-14.5); RDW Standard Deviation 43.6 fL (36.4-46.3); White Blood Count 8.84 K/ul (4.8-10.8)
[2023-08-19 08:08] LABS: C Reactive Protein 8.44 mg/dl (0-0.5); Calcium 9.3 mg/dl (8.6-10.3); Est GFR (African American) 106.9 ml/min; Est GFR (Non-African American) 92.2 ml/min; Potassium 4.1 mmol/L (3.5-5.1)
[2023-08-19] MEDS: ASPIRIN 81 MG ECTAB PO SCH (08:11)
--- NOTE | 2023-08-19 12:29 | Discharge Summary ---
Date of Service August 19, 2023 Admission HPI Per Admitting Provider Rahel is a pleasant 88-year-old female with PMH of cerebrovascular small vessel disease, valvular heart disease, arterial ischemic stroke, and thickened endometrium. She presented from [facility] on 08/17 for right hand cellulitis secondary to a cat scratch. Patient is unsure when the cat scratched her, but it was her house cat (Magui). [facility] nursing present in the room implies additional history; they report that swelling and erythema began to get worse on Tuesday/Tuesday of this past week, and she has been taking Augmentin for it without improvement. She also received a dose of IM Rocephin on 08/15. The patient has no complaints at this time, but does note that his swollen and erythematous. She denies loss of function in her right hand, difficulty with gripping things, itching, or right hand, wrist, or forearm pain. She denies fevers over the past week. She denies prior injuries to the hand for broken bones. She denies any recent falls or fainting. She denies smoking, alcohol use, or tobacco use. Patient's vitals are stable at time of admission. ED course: Unasyn 3000 mg IV Principal Diagnosis cellulitis right arm secondary to cat scratch Discharge Exam GENERAL: 88 yo wd/wn elderly F. Awake and alert. NAD. LUNGS: Clear to auscultation bilaterally. No W/R/R. CARDIOVASCULAR: Regular rate and rhythm. ABDOMEN: Soft, non-tender and non-distended. BS normoactive x 4 quad. EXTREMITIES: No edema. Non-tender. Peripheral pulses +2/4. right distal arm with a few scabbed areas. Minimal edema of left hand with scant residual erythema. Nontender. Skin: see ext exam. otherwise intact. Discharge Data Allergies Allergy/AdvReac Type Severity Reaction Status Date / Time No Known Drug Allergies Allergy Unknown Verified 08/18/23 17:42 Ordered Studies 08/19/23 07:16 08/19/23 07:16 Chest X-Ray 08/18/23 15:18 SINGLE VIEW CHEST CLINICAL HISTORY: Sepsis. FINDINGS: A PA chest radiograph is compared to study dated 06/07/2018. The heart is top normal for projection noting atherosclerotic calcification of the thoracic aorta. There is bibasilar scarring/atelectasis. No airspace consolidation or large pleural effusion is identified. No pneumothorax is seen. The skeletal structures are osteopenic. The bony thorax is grossly intact. IMPRESSION: No active disease in the chest. ACT 112: Negative or not required by law. Electronically signed by: Joshua Reyna M.D. 08/18/2023 4:08 PM Hand X-Ray 08/18/23 16:05 XR hand RT min 3V routine HISTORY: 88 years-old Female edema acute pain and swelling of the right hand COMPARISON: Forearm radiograph same day TECHNIQUE: 3 views of the right hand FINDINGS: Mild diffuse soft tissue swelling. The visualized appearance of the bones. Chondrocalcinosis. Moderate multifocal osteoarthritis. No acute fracture, dislocation or osseous erosion. IMPRESSION: Soft tissue swelling without acute osseous abnormality. ACT 112: Negative or not required by law. The above report was generated using voice recognition software. It may contain grammatical, syntax or spelling errors. Electronically signed by: Iain Poole M.D. 08/18/2023 4:57 PM Forearm X-Ray 08/18/23 16:06 RIGHT FOREARM 2 VIEWS CLINICAL HISTORY: Right arm swelling. FINDINGS: AP and lateral views of the right forearm are obtained. No prior studies are available for comparison at the time of dictation. The skeletal structures are osteopenic. There is no radiographic evidence of right forearm fracture. The elbow and wrist joints are grossly maintained. Diffuse soft tissue edema is seen throughout the right forearm, wrist, and hand. No radiodense foreign body or soft tissue gas is identified. IMPRESSION: Soft tissue edema with no acute bony abnormality identified. Electronically signed by: Josuha Reyna M.D. 08/18/2023 4:41 PM Hospital Course (1) Cat scratch: Acute/stable - [facility] resident; cat scratch on her right hand at some point last week from her home - Failed outpatient treatment with Augmentin and IM Rocephin x 1 dose - Right hand/forearm x-rays with soft tissue swelling but no acute bony abnormalities - CRP and ESR ordered, both elevated, 12.48 and 76 respectively. - Empirically started on Azithromycin 500 mg IV daily, Rocephin 2g IV daily, and Flagyl 500mg IV q8 - CRP has downtrended today to 8.44 - CBC and BMP reviewed, no significant abnormalities, afebrile - Per UpToDate, recommendation for cat scratch is 5 day course of Azithromycin. Will transition to oral Azithromycin 250mg po daily x4 more days - Follow up with PCP (2) Chronic arterial ischemic stroke, multifocal, multiple vascular territories: Chronic/stable - Continue Aspirin 81mg daily - Currently also on Atorvastatin 40mg qHS, would consider given advanced age discontinuation of this, defer to PCP (3) Small vessel disease, cerebrovascular: Chronic/stable - Continue Aspirin (4) Memory changes: Chronic/stable - Takes no specific dementia medications - Supportive treatment (5) Hypothyroidism (acquired): Chronic/stable - Continue Levothyroxine Plan Patient is medically and hemodynamically stable for discharge back to [facility] where she resides. Complete course of Azithromycin as prescribed. Follow up with PCP within 24-48 hours of arrival back to facility. Above plan of care has been d/w Dr. Merrill. Total Time Total Time Spent Total Time Spent (In Minutes): 35 minutes Discharge Plan Discharge Items Patient Disposition: Personal [facility] Reason For Visit: CAT SCRATCH, RIGHT HAND SWELLING Discharge Diagnosis: cat scratch with right arm cellulitis Activity: Resume your previous activity Non-emergency contact: Primary Care Provider Call non-emergency contact if: you have any medication questions, your symptoms worsen, your pain is not controlled and your temperature is above 101 Follow-up/Referrals: Hoang Palma MD [Primary Care Provider] - Diet: Regular Addtl Attending Provider Instructions: * You were hospitalized due to an skin infection in your right arm. You will be discharged home on a course of antibiotics to complete. * Your antibiotics will be as follows: Bactrim DS 1 tab by mouth twice a day x 7 days and Flagyl 500mg 1 tab by mouth three times a day x 7 days. Please take the full course until no more medicine is left. * Keep the wounds on your right arm clean and dry. If you begin to see increased redness, swelling, drainage, bleeding or fever >101, please notify medical personnel immediately. * Call 911 or go to the ER in the event of a medical emergency. Pending Studies at Discharge: No Stand-Alone Forms: My CaseTrek, Smoking Cessation Skilled Items Patient informed of condition?: Yes DNR: Yes Discharge Level of Care: Other Communicable Disease: No Discharge Prognosis: Improving Lines: None Urinary Catheter: No Medications and DC Order Prescriptions: New azithromycin 250 mg tablet 250 mg PO DAILY 4 Days Qty: 4 0RF Rx Instructions: start on 08/19/23 evening with supper Continued aspirin 81 mg tablet,delayed release (DR/EC) 81 mg PO QAM atorvastatin 40 mg tablet 40 mg PO QPM levothyroxine 75 mcg Tablet 75 mcg PO DAILYBB cholecalciferol (vitamin D3) [Vitamin D3] 50 mcg (2,000 unit) Capsule 50 mcg PO QAM cyanocobalamin (vitamin B-12) [Vitamin B-12] 500 mcg Tablet 500 mcg PO DAILY PreserVision AREDS-2 250-90-40-1 mg Capsule 2 tab PO QPM acetaminophen [Tylenol Extra Strength] 500 mg Tablet 1,000 mg PO TID oxycodone 5 mg Tablet 5 mg PO QID PRN (Reason: Pain) eplerenone 25 mg Tablet 12.5 mg PO QAM Rx Instructions: 1/2 tablet dose diclofenac sodium 1 % Gel 1 ea TOPICAL TID PRN (Reason: right knee pain) Saccharomyces boulardii [Florastor] 250 mg Capsule 250 mg PO DAILY Rx Instructions: take for 2 weeks..start 08/16/23 end date 08/30/23 Benadryl Itch Stopping 1-0.1 % Cream 1 applic TOPICAL Q6 PRN (Reason: itching/rash) Discontinued amoxicillin-pot clavulanate [Augmentin] 875-125 mg Tablet 1 tab PO BID Rx Instructions: take for 14 administrations starting 08/15/23 and ending 08/22/23 Discharge Orders: Discharge Order (Routine); Ordered 08/19/23 Ordered By: Corrina Goldman/Other Patient Handouts: Animal Bites and Scratches Admission Data Admit Date/Time: 08/18/23 18:07 Attending Provider: José Merrill Admit Provider: Michael Pastor Primary Care Provider: Hoang Palma Coding Level of Care Code 83612 INP/OBS DISCH >30 MIN Diagnoses Cat scratch W55.03XA Chronic arterial ischemic stroke, multifocal, multiple vascular territories I69.30 Small vessel disease, cerebrovascular I67.9 Memory changes R41.3 Hypothyroidism (acquired) E03.9
[2023-08-19] MEDS ORDERED: AZITHROMYCIN 500 MG in DEXTROSE 5% 250 ML IV SCH (18:15)
[2023-08-19] MEDS ORDERED: cefTRIAXone SODIUM 2,000 MG/50 ML BAG IV SCH (18:30)
--- NOTE | 2023-08-20 06:27 | Electrocardiogram Report ---
Test Reason : Blood Pressure : / mmHG Vent. Rate : 075 BPM Atrial Rate : 075 BPM P-R Int : 164 ms QRS Dur : 082 ms QT Int : 388 ms P-R-T Axes : 104 147 132 degrees QTc Int : 433 ms Suspect arm lead reversal, interpretation assumes no reversal Normal sinus rhythm Left posterior fascicular block Abnormal ECG No previous ECGs available Confirmed by Chad Tarango ([id number]) on 08/20/2023 6:27:22 AM Referred By: Hoang Palma Confirmed By:Chad Tarango
== END 2023-08-19 14:51 | disposition home or self-care (01) ==
LOC: 3W 14:53 → ED 14:53 → SUATTDRO 18:07 → 3W 19:29